=== PATIENT | male | born 1950 | race Caucasian/White ===

== ENCOUNTER 2018-12-31 02:39 | Inpatient (IN) ==
--- NOTE | 2018-12-25 17:24 | EKG Report ---
Test Performed on : 12/25/2018 5:07:18 PM Test Reason : PAT Blood Pressure : / mmHG Vent. Rate : 093 BPM Atrial Rate : 093 BPM P-R Int : 192 ms QRS Dur : 098 ms QT Int : 350 ms P-R-T Axes : 085 100 015 degrees QTc Int : 435 ms Normal sinus rhythm. Rightward axis Borderline ECG No previous ECGs available Confirmed by Jose OLIVEROS, Clay ([id number]) on 12/25/2018 6:31:11 PM
[2018-12-25 17:28] LABS: BASO# 0.03 X1000 (0.0-0.2); BASO% 0.4 % (0.0-0.8); EOS# 0.13 X1000 (0.0-0.7); EOS% 1.7 % (0.0-10.0); HEMATOCRIT 43.9 % (42.0-52.0); HEMOGLOBIN 14.7 g/dL (14.0-18.0); IMM GRAN# 0.02 X1000 (0.0-0.04); IMM GRAN% 0.3 % (0.0-0.5); LYMPH# 2.92 X1000 (1.2-3.4); LYMPH% 38.9 % (20.5-51.1); MCH 29.5 PG (27-31); MCHC 33.5 g/dL (33-37); MONO# 0.91 X1000 (0.11-0.59); MONO% 12.1 % (1.7-9.3); NEUT# 3.49 X1000 (1.4-6.5); NEUT% 46.6 % (42.2-75.2); PLT 177 X1000 (130-400); RBC 4.99 XMIL (4.7-6.1)
[2018-12-25 17:35] LABS: URINE SOURCE CLEAN CATCH
[2018-12-25 17:39] LABS: BILIRUBIN URINE NEGATIVE (NEGATIVE); BLOOD URINE NEGATIVE (NEGATIVE); COLOR YELLOW; GLUCOSE URINE NEGATIVE (NEGATIVE); KETONE URINE TRACE mg/dL (NEGATIVE); LEUKOCYTES URINE NEGATIVE (NEGATIVE); NITRITE URINE NEGATIVE (NEGATIVE); PH URINE 5.5; PROTEIN URINE NEGATIVE (NEGATIVE); SP GRAVITY URINE 1.025; TURBIDITY URINE CLEAR (CLEAR); UR EPITHELIAL CELLS <10 /HPF (<10); URINE BACTERIA NEGATIVE /HPF; URINE RBC <10 /HPF (<10); URINE WBC <10 /HPF (<10); UROBILINOGEN URINE NORMAL (NORMAL)
[2018-12-25 17:39] LABS: INR 0.96; PROTIME 13.6 Seconds (11.0-16.0)
[2018-12-25 17:40] LABS: PTT 27.1 Seconds (22.3-41.8)
[2018-12-25 17:51] LABS: CALCIUM 9.6 mg/dL (8.8-10.2); CREATININE 1.2 mg/dL (0.7-1.2); POTASSIUM 3.8 mmol/L (3.5-5.1)
[2018-12-31] MEDS ORDERED: COLACE ONE (06:24)
[2018-12-31] MEDS ORDERED: LR 1,000 ML ONE (06:25)
[2018-12-31] MEDS ORDERED: PEPCID ONE (06:25)
[2018-12-31] MEDS ORDERED: LYRICA ONE (06:25)
[2018-12-31] MEDS ORDERED: CELEBREX ONE (06:25)
[2018-12-31] MEDS ORDERED: REGLAN ONE (06:25)
[2018-12-31] MEDS ORDERED: KEFZOL 2 GM/D5W 2 GM/50 ML IVPB ONE (06:26)
[2018-12-31] MEDS ORDERED: DIPRIVAN 1% ONE (06:40)
[2018-12-31] MEDS ORDERED: DURAMORPH ONE (06:59)
[2018-12-31] MEDS ORDERED: EXPAREL 1.3% ONE (07:00)
[2018-12-31] MEDS ORDERED: SODIUM CHLORIDE 0.9% ONE (07:00)
[2018-12-31] MEDS ORDERED: TORADOL ONE (07:00)
[2018-12-31] MEDS ORDERED: MARCAINE 0.25% PF ONE (07:00)
[2018-12-31] MEDS ORDERED: NEOSPORIN G.U. IRRIGANT ONE (07:00)
[2018-12-31] MEDS ORDERED: CYKLOKAPRON 1,000 MG/NS 1,000 MG/100 ML IVPB ONE (07:00)
[2018-12-31] MEDS ORDERED: FENTANYL ONE (07:48)
[2018-12-31] MEDS ORDERED: OFIRMEV 1000 MG/ISOTONIC SOLN 1,000 MG/100 ML BOTTLE ONE (07:50)
[2018-12-31] MEDS ORDERED: DECADRON ONE (07:50)
[2018-12-31] MEDS ORDERED: ZOFRAN ONE (07:50)
[2018-12-31] MEDS ORDERED: EPHEDRINE ONE (08:44)
[2018-12-31 08:52] LABS: URINE SOURCE CATH
[2018-12-31 08:55] LABS: BILIRUBIN URINE NEGATIVE (NEGATIVE); BLOOD URINE NEGATIVE (NEGATIVE); COLOR YELLOW; GLUCOSE URINE NEGATIVE (NEGATIVE); KETONE URINE NEGATIVE (NEGATIVE); LEUKOCYTES URINE NEGATIVE (NEGATIVE); NITRITE URINE NEGATIVE (NEGATIVE); PROTEIN URINE NEGATIVE (NEGATIVE); SP GRAVITY URINE 1.017; TURBIDITY URINE CLEAR (CLEAR); UROBILINOGEN URINE NORMAL (NORMAL)
[2018-12-31 08:56] LABS: UR EPITHELIAL CELLS <10 /HPF (<10); URINE BACTERIA NEGATIVE /HPF; URINE RBC <10 /HPF (<10); URINE WBC <10 /HPF (<10)
[2018-12-31] MEDS: DILAUDID ONE ×4 (09:11→09:21)
[2018-12-31] MEDS ORDERED: NS 1,000 ML ONE (09:13)
--- NOTE | 2018-12-31 09:17 | OPERATIVE NOTE ---
PROCEDURE DATE: 12/31/2018 PREOPERATIVE DIAGNOSIS: Degenerative joint disease, right hip. POSTOPERATIVE DIAGNOSIS: Degenerative joint disease, right hip. PROCEDURE PERFORMED: Right anterior hip replacement. SURGEON: Presley Horvath MD. BOOKKEEPING ASSISTANT: ROSE Haywood. Mr. Houser was necessary for proper retraction and manipulation of the leg during the case. ANESTHESIA: General. COMPLICATION: None. PROCEDURE IN DETAIL: This 68-year-old male presents for right anterior hip replacement. Risks, benefits, and no guarantees were discussed and he is willing to proceed. He was taken to the operating room and satisfactory anesthesia obtained. He was placed on the [place] table and the right hip prepped and draped in usual sterile fashion. A time-out was taken to confirm operative site, procedure, and patient. An anterior approach was undertaken to the hip, starting with an incision roughly 1 cm distal and lateral to the anterior superior iliac spine and carried over the anterolateral thigh for 10 cm. Dissection was carried down through the skin to the subcutaneous fat. The fascia of the tensor fascia roshan was split in line with the incision and blunt dissection along the inner membrane undertaken down the anterior hip capsule. Cobra retractors were placed over the superior and inferior aspect of the femoral neck and a capsulotomy incision made to expose the joint. The C-arm was used to reference leg lengths with an AP pelvis at this point prior to osteotomy. The femoral neck osteotomy was made and the femoral head removed. A small Cobra retractor was placed directly on acetabular bone with care to avoid any soft tissue impingement and allow visualization of the acetabulum as well as reaming and protection of the anterior soft tissues. Sequential reaming under fluoroscopic guidance was undertaken up to a 53 reamer. A DePuy [place] Duofix ARROYO coated cup 54 outer diameter was impacted in the acetabulum under fluoroscopic guidance in roughly 45 degrees of abduction and 15 degrees of anteversion. This had secure Press-Fit fixation. A 25 length screw was placed in the 12 o'clock position of the cup for additional security, followed by a 36-mm inner diameter 0 degree polyethylene liner. The liner was impacted into the shell and the liner shell interface and shell bone interface checked and noted to be stable. Traction was released off the leg and the hip extended and externally rotated to facilitate broaching of the proximal femur. Sequential broaching of the proximal femur with the DePuy active stem was undertaken up to a size 7 stem. A high offset neck length with a +12 neck produced good stability as well as length in the leg due to roughly 1 inch preop shortening of the involved extremity. This allowed good stability of the implant. The trial femoral stem was removed and a size 7 high offset neck active stem impacted in the proximal femur with secure axial and rotational stability. A 36 ceramic with a +12 neck length was impacted onto this and the hip reduced. No posterior instability was noted with flexion and internal rotation and no significant anterior instability with extension of the hip up to 50 degrees and external rotation to 70 degrees. The wound was copiously irrigated with irrigant. The C-arm was used to verify accurate replacement of the hip. The joint was injected with Exparel for pain management. A Hemovac drain placed. The fascia of the tensor was closed with a running V-Loc suture over the drain, followed by 2-0 Vicryl in the subcutaneous and raymond on the skin. Sterile dressings were applied and he was recovered from anesthesia and transferred to the recovery room in stable condition. No intraoperative complications were noted. Instrument count and sponge count were correct at the time of closure. cc: Bobby Horvath MD
[2018-12-31] MEDS: NS 1,000 ML IV SCH ×2 (10:00→23:17)
[2018-12-31] MEDS ORDERED: OXY IR PO PRN ×2 (11:00)
[2018-12-31] MEDS ORDERED: ZOFRAN IV PRN (11:00)
[2018-12-31] MEDS ORDERED: MORPHINE IV PRN ×3 (11:00)
[2018-12-31] MEDS ORDERED: CYKLOKAPRON 1,000 MG in NS 100 ML IV ONE (13:30)
--- NOTE | 2018-12-31 14:22 | ORTHOPAEDICS PROGRESS NOTE ---
DATE: 12/31/2018 SUBJECTIVE: Mr. Castrejon is seen status post anterior hip replacement. OBJECTIVE: Vital signs: At the present time, he is afebrile with stable vital signs. Extremities: His bandage is clean and dry. He is able move the lower extremity well and toes are up and downgoing actively, as well as quad and hamstring function. PLAN: We will plan on mobilizing him today. We will consider discharge home in the next 24 hours, pending successful mobilization. cc: Bobby Horvath MD
[2018-12-31] MEDS: TYLENOL PO SCH ×2 (15:17→21:01)
[2018-12-31] MEDS: ULTRAM PO SCH ×2 (15:18→21:00)
[2018-12-31] MEDS: KEFZOL 2 GM/D5W 2 GM/50 ML IVPB IV SCH ×2 (15:56→23:17)
[2018-12-31] MEDS ORDERED: PRINIVIL PO SCH (21:00)
[2018-12-31] MEDS ORDERED: COLACE PO SCH (21:00)
[2018-12-31] MEDS ORDERED: GLUCOPHAGE PO SCH (21:00)
[2018-12-31] MEDS ORDERED: PRAVACHOL PO SCH (21:00)
[2018-12-31] MEDS ORDERED: JANUVIA PO SCH (21:00)
[2018-12-31] MEDS: PERIDEX MT SCH (21:01)
[2019-01-01] MEDS: NS 1,000 ML IV SCH (02:32)
[2019-01-01] MEDS: ULTRAM PO SCH ×2 (02:43→09:13)
[2019-01-01] MEDS: TYLENOL PO SCH ×2 (02:44→09:14)
[2019-01-01 06:13] LABS: HEMATOCRIT 33.3 % (42.0-52.0); HEMOGLOBIN 11.2 g/dL (14.0-18.0)
[2019-01-01 06:40] LABS: AGAP 5; BUN 17 mg/dL (8-22); CALCIUM 8.3 mg/dL (8.8-10.2); CHLORIDE 103 mmol/L (98-107); COSMO 273; CREATININE 0.8 mg/dL (0.7-1.2); ESTIMATED GFR > 60; GLUCOSE 129 mg/dL (70-104); POTASSIUM 4.3 mmol/L (3.5-5.1); SODIUM 135 mmol/L (136-145); TCO2 27 mmol/L (25-35)
[2019-01-01 07:15] VITALS: BP 120/72
--- NOTE | 2019-01-01 08:25 | ORTHOPAEDICS PROGRESS NOTE ---
DATE: 01/01/2019 SUBJECTIVE: Mr. Castrejon is seen today status post anterior hip replacement. He is stable at the present time, awake and alert. He is comfortable. His incision is clean and dry. Hematocrit stable this morning at 33. Will plan on discontinuing all lines and mobilizing today. He can be discharged home. We will see him in roughly 12 days. He can return in the interim for any worsening signs or symptoms. cc: Bobby Horvath MD
[2019-01-01] MEDS ORDERED: CELEBREX PO SCH (09:00)
[2019-01-01] MEDS ORDERED: PEPCID PO SCH (09:00)
[2019-01-01] MEDS ORDERED: ASPIRIN PO SCH (09:00)
[2019-01-01] MEDS: PERIDEX MT SCH (09:12)
== END 2019-01-01 10:53 | disposition home or self-care (01) | DRG 470 ==
LOC: SURHOLD 02:39 → 4N 08:54
PROVIDERS: ADMIT Orthopaedic Surgery Adult Reconstructive Orthopaedic Surgery; ATTEND Orthopaedic Surgery Adult Reconstructive Orthopaedic Surgery
CPT/HCPCS: 76000; 80048; 81001; 82948; 85014; 85018; 85025; 85610; 85730; 86850; 86900; 86901; 88304; 88311; 93005; 93010; 94761; 94799; 97110; 97116; 97162; 97530; A9270; C9290; J0131; J0690; J1100; J1170; J1885; J2274; J2275; J2405; J3010; J7030; J7120; Q9974; S0020; XXXXX